=== PATIENT | male | born 2000 | race Caucasian/White ===

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

== ENCOUNTER 2018-05-23 05:34 | Emergency (ER) | payer BC ==
[~2018-05-23] VITALS: Ht 177.8 cm; Wt 53.5 kg
[2018-05-23] MEDS ORDERED: TADALAFIL20 MG (06:07)
[2018-05-23] MEDS ORDERED: CLOP75 PO (06:08)
== END 2018-05-23 08:27 | disposition home or self-care (01) ==
LOC: ER 05:34
DX: Z45.2 Encounter for adjustment and management of vascular access device (principal); J45.909 Unspecified asthma, uncomplicated; I27.20 Pulmonary hypertension, unspecified
CPT/HCPCS: 36415; 99283